=== PATIENT | male | born 1990 | race Two or more races ===

== ENCOUNTER 2017-07-25 18:13 | Emergency (ER) | payer OTHER ==
--- NOTE | 2017-07-25 19:20 | ER Document Report ---
HPI - HPI Patient complains to provider of: fb in ear Pain Level: 2 Context: Patient is a 27-year-old male presents emergency department complaining of right ear discomfort and foreign body. Patient states that he was working in his car changing something to do with a fuel line when he got feel in his right ear. Patient states that he had some discomfort rinse his ear out at home and came to the ER. Patient states that he is pain-free at this time denies any hearing loss, residual pain at this time. Past Medical History - Social History Smoking Status: Smoker,Current Status Unk Family History: Reviewed & Not Pertinent Vertical Provider Document - CONSTITUTIONAL Agree With Documented VS: Yes Notes: PHYSICAL EXAM GENERAL: Alert, interacts well. HEENT: NCAT, external ear normal, external auditory canal with minimal erythema prior to meeting with the tympanic membrane otherwise no evidence of external auditory canal tenderness, blood/drainage, cerumen impaction, TM intact without evidence of effusion, bulging, injection, NEUROLOGICAL: Alert and oriented x4. Normal speech. PSYCH: Normal affect, normal mood. SKIN: Warm, dry, normal turgor. No rashes or lesions noted. - INFECTION CONTROL TRAVEL OUTSIDE OF THE [place] IN LAST 30 DAYS: No - RESPIRATORY O2 Sat by Pulse Oximetry: 96 Course - Re-evaluation Re-evalutation: 07/25/17 19:18 Patient is a 27-year-old male is hemodynamically stable, no acute distress and afebrile. No evidence of tympanic perforation at this time given no evidence of perforation within the tympanic membrane, hearing loss, significant barotrauma, blood within the external auditory canal or active drainage. Since patient irrigated the ear at home and is complaint free at this time, will discharge home with instruction to follow-up with primary care as needed also supplied #4 ear nose and throat if they so choose to follow-up with him. Otherwise stable for discharge home - Vital Signs Vital signs: Temp Pulse Resp BP Pulse Ox 98.7 F 98 18 151/92 H 96 07/25/17 18:25 07/25/17 18:25 07/25/17 18:25 07/25/17 18:25 07/25/17 18:25 Discharge - Discharge Clinical Impression: Pre-hypertension Ear foreign body Qualifiers: Encounter type: initial encounter Laterality: right Qualified Code(s): T16.1XXA - Foreign body in right ear, initial encounter Condition: Good Disposition: HOME, SELF-CARE Additional Instructions: There is no evidence of retained foreign body in your ear canal. There is evidence of mild irritation likely due to a chemical contact and irrigation but there is no evidence of a hole in your eardrum. Please take Tylenol or Motrin as needed for pain and follow-up with your primary care doctor. Forms: Elevated Blood Pressure [facility] - Follow up in 1 week
[2017-07-25 19:33] VITALS: BP 153/105
== END 2017-07-25 19:32 | disposition home or self-care (01) ==
LOC: ER 18:13
DX: T16.1XXA Foreign body in right ear, initial encounter (principal); H92.01 Otalgia, right ear; R03.0 Elevated blood-pressure reading, without diagnosis of hypertension; X58.XXXA Exposure to other specified factors, initial encounter
CPT/HCPCS: 99282